=== PATIENT | male | born 2000 | race Two or more races ===

== ENCOUNTER 2024-09-22 11:23 | Emergency (ER) | payer MEDICAID, SELFPAY ==
[2024-09-22 11:26] VITALS: BP 148/84; PULSE 77; RESP 19; TEMP 36.9; O2SAT 98; BMI 25.1
--- NOTE | 2024-09-22 11:45 | XR_ITS ---
Exam: elbow bilateral, 6 views Technique: Elbow AP, oblique each elbow total 6 views Exam date and time: September 22, 2024 1207 hours INDICATIONS: Lifting injury to both elbows 2 weeks ago followed by pain FINDINGS: No fracture or dislocation involving either elbow No elbow effusions IMPRESSION: No fracture or dislocation involving either.
--- NOTE | 2024-09-22 11:46 | PD.EDUPEX ---
Upper Extremity Injury RME/HPI General Chief Complaint: Extremity Injury, Upper Stated Complaint: b/l elbow pain. left worse than right Time Seen by Provider: 09/22/24 11:25 Arrival date/time: 09/22/24 11:23 24-year-old male presents emergency department complaints of bilateral elbow pain as well as left upper arm pain patient reports left upper arm pain started after lifting weights while doing training with the patient reports no direct trauma to the right elbow there are no other associated symptoms or aggravating factors no other modifying factors, patient denies taking medication before coming to ER today Limitations: no limitations Related Data Previous Rx's ?Medication ?Instructions ?Recorded acetaminophen 500 mg capsule 1,000 mg (2 x 500 mg) PO Q6H PRN 05/07/24 fever or pain #30 caps fluconazole 200 mg tablet 200 mg PO BID #60 tabs 05/07/24 (Diflucan) ibuprofen 600 mg tablet 600 mg PO Q8H PRN fever or pain 05/07/24 #30 tabs ibuprofen 600 mg tablet 600 mg PO Q6H #30 tabs 09/22/24 Allergies Allergy/AdvReac Type Severity Reaction Status Date / Time vancomycin Allergy Severe Hives Verified 09/22/24 11:25 Review of Systems Review of Systems Systems Reviewed: All systems reviewed, normal except as documented Constitutional Constitutional: Reports system reviewed and no additional complaints, except as documented, Denies fever(s) and Denies headache(s) Eyes Eyes: Reports system reviewed and no additional complaints, except as documented and Denies blurry vision ENT Ears, Nose, Mouth, and Throat: Reports system reviewed and no additional complaints, except as documented, Denies headache(s), Denies nasal congestion and Denies nasal discharge Cardiovascular Cardiovascular: Reports system reviewed and no additional complaints, except as documented, Denies chest pain and Denies dyspnea Respiratory Respiratory: Reports system reviewed and no additional complaints, except as documented, Denies chest congestion, Denies cough and Denies dyspnea Gastrointestinal Gastrointestinal: Reports system reviewed and no additional complaints, except as documented and Denies abdominal pain Musculoskeletal Musculoskeletal: Reports system reviewed and no additional complaints, except as documented, Reports arthralgias, Denies deformity, Denies joint swelling, Denies numbness and Denies tingling Integumentary/Breasts Skin/Breast: Reports system reviewed and no additional complaints, except as documented and Denies rash Neurologic Neurologic: Reports system reviewed and no additional complaints, except as documented, Reports as per HPI, Denies headache(s), Denies numbness and Denies tingling Past Medical History Past Medical History CARDIAC: Negative Congestive Heart Failure RESPIRATORY: Negative Chronic Obstructive Pulmonary Disease (COPD) GENITOURINARY: Negative Renal Disease ENDOCRINE: Negative Diabetes Mellitus Type 1 or Diabetes Mellitus Type 2 Social History SMOKING STATUS: Current every day smoker SUBSTANCE USE: does not use ED Exam General Limitations: Present no limitations General appearance: Present alert and in no apparent distress Head Head exam: Present atraumatic Eye Eye exam: Present normal appearance, PERRL and EOMI ENT ENT exam: Present normal exam, normal oropharynx and mucous membranes moist Neck Neck exam: Present normal inspection, full ROM and trachea midline Chest Chest inspection: Present normal inspection and symmetric chest wall rise Respiratory Respiratory exam: Present normal lung sounds bilaterally Cardiovascular Cardiovascular exam: Present regular rate, normal rhythm and normal heart sounds Abdominal Exam Abdominal exam: Present soft and normal bowel sounds Extremities Exam Extremities exam: Present normal inspection and full ROM Back Exam Back exam: Present normal inspection and full ROM Neurological Exam Neurological exam: Present alert, oriented X3 and CN II-XII intact Psychiatric Psychiatric exam: Present normal affect and normal mood Skin Skin exam: Present warm, dry, intact and normal color Course Quality Measures none Orders Category Date Time Status XR elbow comp BI min 3V Stat Exams 09/22/24 11:45 Completed Vital Signs Vital signs: Vital Signs Temperature 98.5 F 09/22/24 11:26 Pulse Rate 77 09/22/24 11:26 Respiratory Rate 19 09/22/24 11:26 Blood Pressure 148/84 H 09/22/24 11:26 Pulse Oximetry (%) 98 09/22/24 11:26 Oxygen Delivery Method Room Air 09/22/24 11:26 O2 saturation 98% r/a wnl Extremity Injury MDM Narrative MDM Narrative:: 24-year-old male presents emergency department complaints of bilateral elbow pain as well as left upper arm pain patient reports left upper arm pain started after lifting weights while doing training with the patient reports no direct trauma to the right elbow there are no other associated symptoms or aggravating factors no other modifying factors, patient denies taking medication before coming to ER today On exam patient has full range of motion bilateral elbows patient is no bruising or swelling patient does have tenderness to the left upper arm Patient discharged home in no distress to follow-up with primary care doctor in the next 24 to 48 hours and for any worsening symptoms to return to the ER immediately Patient data External records reviewed:: [facility] previous records Clinical information provided by:: patient Social determinants that could affect healthcare access:: none Patient has the following chronic illnesses:: None How is presenting disease/condition affected by chronic disease/condition?: no chronic disease Evaluation data The following diagnostics were reviewed and interpreted by me:: radiology exam(s) Lab and/or radiology exams considered but not ordered:: Radiology obtained Interpretation Summary: Reviewed by me Medications / Prescriptions Medications or Prescriptions considered but not ordered:: Given Medication administrations:: Given Consultations Consultation(s) initiated? (list below): No Diagnosis Upper Extremity Injury Differential Diagnosis: other (Elbow sprain, elbow fracture) Most likely diagnosis given after review of the tests above:: Elbow sprain Admission Indicated Admission indicated?: not indicated Admission Request Was there a request for admission?: No Disposition Plan Disposition Plan: Discharge Discharge Attestation Discharge Attestation: The patient and all family members were given an opportunity to ask questions and understood the discharge instructions. Discharge instructions specifically effects, indications for sooner follow up or return to the emergency department, and the expected course of current diagnosis. Patient condition: Stable Discharge Plan Plan Patient Disposition: Elopement Disposition Comment: Stable Prescriptions/Referrals Prescriptions/Med Rec: New ibuprofen 600 mg tablet 600 mg PO Q6H Qty: 30 0RF No Action acetaminophen 500 mg capsule 1,000 mg PO Q6H PRN (Reason: fever or pain) Qty: 30 0RF fluconazole [Diflucan] 200 mg tablet 200 mg PO BID Qty: 60 0RF ibuprofen 600 mg tablet 600 mg PO Q8H PRN (Reason: fever or pain) Qty: 30 0RF Referrals: Arnulfo Andrew MD [Primary Care Provider] - 09/23/24 Problem List Clinical Impression: Pain of both elbows, Arm pain, left Patient/Caregiver Discharge Instructions Education Materials: ED RICE Additional Instructions: [facility] worsening symptoms return immediately Print Language: Swiss Stand Alone Forms: [employer] Award Info., Patient Portal Info Letter Attestation Attestation The patient was seen by the midlevel practitioner. I, the co-signing physician, was present during the entire ER visit. While I did not physically examine the patient, I was available for consultation as needed.
--- NOTE | 2024-09-22 13:37 | PC.NURSE ---
Pt states he is leaving and he wants his x ray sent to [facility]. Pt informed that [facility] can request x ray from this hospital, pt just needs to sign their forms for request. Pt verbalizes understanding and leaves.
== END 2024-09-22 13:40 | disposition left against medical advice (07) ==
PROVIDERS: Emergency Provider Emergency Medicine; PCP Family Medicine
DX: M25.522 Pain in left elbow (principal); M25.521 Pain in right elbow; M79.622 Pain in left upper arm; Z88.1 Allergy status to other antibiotic agents; X50.0XXA Overexertion from strenuous movement or load, initial encounter; Y93.B9 Activity, other involving muscle strengthening exercises; Y99.8 Other external cause status
CPT/HCPCS: 73080; 99283

== ENCOUNTER 2024-12-22 09:25 | Outpatient (RCR) | payer MEDICAID, SELFPAY ==
--- NOTE | 2024-12-22 09:50 | PTNOTE_ITS ---
PT OP Initial Eval Patient Information Outpatient Physical Therapy Treatment Date: 12/22/24 Visit Reasons: bilateral knee and elbow pain Medical Diagnosis: M25.522; M25.521 Treatment Dx #1: Bilateral Elbow Pain Start of Care: 12/22/24 Date of Onset: Jul 2024 Smoking Status Smoking Status: Never smoker Initial Assessment Subjective: Pt is a 24 y/o male reports of chronic elbow pain (9/10) L>R since his training in Jul. Pt's xray negative but no MRI has been done. Pt has limitation with lifting, working out, sleeping, chores, self care, and performing recreational activities. Objective: Bilateral Elbow AROM: all motions are WFL Bilateral MMTs: grossly 4-/[address] [employer] Strength L: 123 lbs R: 119 lbs Assessment: Pt demonstrate nonspecific elbow pain leading to difficulty with ADLs. Pt will attempt physical therapy if pain persist Pt eneida be refer back to provider. Short Term and [employer] Goals 1) Increase Bilateral elbow AROM WNL in 6 wks to be able to perform chores 2) Increase bilateral elbow MMTs grossly 4/5 in 6 wks to be able to perform lifting activities 3) Decrease elbow pain to 4/10 in 6 wks to be able to resume recreational activities 4) Indep with HEP Treatment Plan 1) Manual Therapy 2) Therapeutic Activities 3) Therapeutic Exercises 4) Modalities (ice, heat) Frequency and Duration: 2 x wk for 6 wks Certification Dates: 12/22/24 to 03/21/25 Procedure Charges OP PT Eval Mod Complex 30 minutes: Yes
== END 2024-12-26 23:59 | disposition home or self-care (01) ==
LOC: CPTX 09:25
PROVIDERS: PCP Family Medicine; Referring Provider Family Medicine; Visit Provider Family Medicine
DX: M25.522 Pain in left elbow (principal); M25.521 Pain in right elbow; G89.29 Other chronic pain
CPT/HCPCS: 97162

== ENCOUNTER 2024-12-31 10:06 | Outpatient (RCR) | payer MEDICAID, SELFPAY ==
--- NOTE | 2024-12-31 11:14 | PT.ODAYNRPT ---
PT Outpatient Daily Note OP Daily Note Outpatient Physical Therapy Treatment Date: 12/31/24 Visit Reasons: Bilateral knee pain/elbow pain Subjective: Pt c/o B elbow pain and clickin/popping. Objective: Please see flow sheet for ther ex list. Assessment: Pt demonstrates poor tolerance with interventions assigned due to pain response. Plan: Continue with POc. Length of Time (minutes) of Treatment: 30 Minutes Procedure Charges Therapeutic Exercise 30 minutes: Yes
--- NOTE | 2025-01-27 10:37 | PT.ODS1RPT ---
PT OP Progress/Discharge Note Date of Service: 01/27/25 Progress Note/DC Note Progress Note/Discharge Note: DC Note Patient Information Visit Reasons: Bilateral knee pain/elbow pain Service Discharge Date: 01/27/25 Status Assessment: Pt has been seen for 2 visits (eval + 1 visit). Pt last treated on 12/31/24 and will be d/c from care due to change in insurance. Pt did not meet set goals in therapy; thank you for your referrals.
== END 2025-01-26 23:59 | disposition home or self-care (01) ==
LOC: CPTX 10:06
PROVIDERS: PCP Family Medicine; Referring Provider Family Medicine; Visit Provider Family Medicine
DX: M25.522 Pain in left elbow (principal); M25.521 Pain in right elbow; G89.29 Other chronic pain
CPT/HCPCS: 97110

== ENCOUNTER 2025-10-05 00:46 | Emergency (ER) | payer OTHER, SELFPAY ==
[2025-10-05 00:47] VITALS: BMI 28.0
[2025-10-05 01:01] VITALS: BP 149/85; PULSE 63; RESP 20; TEMP 36.6; O2SAT 99
--- NOTE | 2025-10-05 01:06 | EDNOTE_ITS ---
Upper Extremity Injury RME/HPI General Chief Complaint: Hand/Wrist Problems Stated Complaint: RING STUCK ON RIGHT MIDDLE FINGER Time Seen by Provider: 10/05/25 00:54 Arrival date/time: 10/05/25 00:46 This is a case of 25-year-old male with no medical history came in in the emergency room due to finger pain patient stated that he is unable to remove the finger on the third finger right hand now with swelling redness and pain thus patient decided to sought consult here in the emergency room Limitations: no limitations Related Data Previous Rx's ?Medication ?Instructions ?Recorded acetaminophen 500 mg capsule 1,000 mg (2 x 500 mg) PO Q6H PRN 05/07/24 fever or pain #30 caps fluconazole 200 mg tablet 200 mg PO BID #60 tabs 05/07 (Diflucan) ibuprofen 600 mg tablet 600 mg PO Q8H PRN fever or p ain 05/07/24 #30 tabs ibuprofen 600 mg tablet 600 mg PO Q6H #30 tabs 09/22 ibuprofen 600 mg tablet 600 mg PO Q8H PRN fever or p ain 10/05/25 #20 tabs Allergies Allergy/AdvReac Type Severity Reaction Status Date / Time vancomycin Allergy Severe Hives Verified 09/22/24 11:25 Review of Systems Review of Systems Systems Reviewed: All systems reviewed, normal except as documented Past Medical History Past Medical History CARDIAC: Negative Congestive Heart Failure RESPIRATORY: Negative Chronic Obstructive Pulmonary Disease (COPD) GENITOURINARY: Negative Renal Disease ENDOCRINE: Negative Diabetes Mellitus Type 1 or Diabetes Mellitus Type 2 Social History SMOKING STATUS: Never smoker SUBSTANCE USE: does not use ED Exam General Limitations: Present no limitations General appearance: Present alert, in no apparent distress and other (Patient is awake alert oriented not in distress nontoxic looking well-hydrated well- nourished) Head Head exam: Present atraumatic, normocephalic and normal inspection Eye Eye exam: Present normal appearance, PERRL and EOMI ENT ENT exam: Present normal exam, normal oropharynx and mucous membranes moist Neck Neck exam: Present normal inspection, full ROM and trachea midline Chest Chest inspection: Present normal inspection and symmetric chest wall rise Respiratory Respiratory exam: Present normal lung sounds bilaterally Cardiovascular Cardiovascular exam: Present regular rate, normal rhythm and normal heart sounds Abdominal Exam Abdominal exam: Present soft and normal bowel sounds Extremities Exam Extremities exam: Present normal inspection and full ROM Expanded Upper Extremity Exam Hand exam: Present other (Mild tenderness on the third finger right hand with mild swelling but no crepitation no deformity ROM is intact neurovascular is intact the ring was removed by the charge nurse prior to seeing the); Absent tenderness, swelling, abrasion, laceration, skin avulsion, ecchymosis, deformity, crepitus, dislocation, erythema, amputation, nail avulsion or subun gual hematoma Back Exam Back exam: Present normal inspection and full ROM Neurological Exam Neurological exam: Present alert, oriented X3, CN II-XII intact, normal gait and reflexes normal; Absent motor sensory deficit Psychiatric Psychiatric exam: Present normal affect and normal mood Skin Skin exam: Present warm, dry, intact and normal color Course Quality Measures none Vital Signs Vital signs: Vital Signs Temperature 97.9 F 10/05/25 01:01 Pulse Rate 63 10/05/25 01:01 Respiratory Rate 20 10/05/25 01:01 Blood Pressure 149/85 H 10/05/25 01:01 Pulse Oximetry (%) 99 10/05/25 01:01 Oxygen Delivery Method Room Air 10/05/25 01:01 Oxygen saturation 99% room air normal Extremity Injury MDM Narrative MDM Narrative:: This is a case of 25-year-old male with no medical history came in in the emergency room due to finger pain patient stated that he is unable to remove the finger on the third finger right hand now with swelling redness and pain thus patient decided to sought consult here in the emergency room patient is awake alert oriented not in distress nontoxic looking well-hydrated well nourished the ring was already removed by the charge nurse prior to be seen by the patient noted some redness swelling but no crepitation no deformity ROM is intact neurovascular intact at this point I do not need any x-rays since the patient exam was ROM intact no crepitation no deformity I do not think patient have fracture patient was prescribed with ibuprofen for pain follow-up with PCP in 2 days for reevaluation worsening symptoms or any emergent concern return precaution in the ER is advised Patient was discharged with comfortable condition walking with stable gait. Patient verbalized no further complains explained diagnosis and answered patient question. Patient is comfortable with the proposed management plan including the need to follow up with his/her primary care physician and any specialist if applicable Discussed patient for any urgent condition or worsening sx, He/She needed to go to emergency room immediately or call 911. Patient acknowledge the responsibility to follow up as instructed and to monitor her/his symptoms. For any persistence of the symptoms for more than 3-5 days return precaution advised. Discussed the result of the test and was given printed discharge instruction Patient data External records reviewed:: [facility] previous records Clinical information provided by:: patient Social determinants that could affect healthcare access:: none Patient has the following chronic illnesses:: none How is presenting disease/condition affected by chronic disease/condition?: no chronic disease Evaluation data The following diagnostics were reviewed and interpreted by me:: other (specify) Lab and/or radiology exams considered but not ordered:: none Interpretation Summary: none Medications / Prescriptions Medications or Prescriptions considered but not ordered:: given Medication administrations:: given Consultations Consultation(s) initiated? (list below): No Diagnosis Upper Extremity Injury Differential Diagnosis: dislocation of finger Most likely diagnosis given after review of the tests above:: ring extriction of the right middle finger Admission Indicated Admission indicated?: not indicated Explain why admission is indicated or not indicated:: not indcated Admission Request Was there a request for admission?: No Admission Attestation Admission request attestation: not indicated Disposition Plan Disposition Plan: Discharge Discharge Attestation Discharge Attestation: The patient and all family members were given an opportunity to ask questions and understood the discharge instructions. Discharge instructions specifically effects, indications for sooner follow up or return to the emergency department, and the expected course of current diagnosis. Patient condition: Stable Discharge Plan Plan Patient Disposition: HOME (Self Care) Patient condition on transfer: Stable Prescriptions/Referrals Prescriptions/Med Rec: New ibuprofen 600 mg tablet 600 mg PO Q8H PRN (Reason: fever or pain) Qty: 20 0RF No Action acetaminophen 500 mg capsule 1,000 mg PO Q6H PRN (Reason: fever or pain) Qty: 30 0RF fluconazole [Diflucan] 200 mg tablet 200 mg PO BID Qty: 60 0RF ibuprofen 600 mg tablet 600 mg PO Q8H PRN (Reason: fever or pain) Qty: 30 0RF ibuprofen 600 mg tablet 600 mg PO Q6H Qty: 30 0RF Referrals: Arnulfo Andrew MD [Primary Care Provider, Family Practice] - In 1 week Problem List Clinical Impression: External constriction of right middle finger Patient/Caregiver Discharge Instructions Education Materials: ED Finger Contusion Additional Instructions: Follow-up with your primary care physician in 2 days for reevaluation for any worsening symptoms or any emergent concern call 911 or go to the nearest emergency room ice pack and warm compress as needed for pain take Tylenol Motrin as needed for pain Print Language: Portuguese Stand Alone Forms: [employer] Award Info., Patient Portal Info Letter PA/[employer] OR TRAP Supervising Physician PA/[employer] OR [employer]AP Supervising Physician: Dr. Lion Johnson
== END 2025-10-05 01:30 | disposition home or self-care (01) ==
PROVIDERS: Emergency Provider Emergency Medicine; PCP Family Medicine
DX: S60.442A External constriction of right middle finger, initial encounter (principal); X58.XXXA Exposure to other specified factors, initial encounter
CPT/HCPCS: 99281